=== PATIENT | female | born 1990 | race Hispanic/Latino ===

== ENCOUNTER 2019-04-06 06:13 | Day surgery (SDC) | payer BC ==
--- NOTE | 2019-04-05 18:14 | History and Physical Report ---
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 Past Surgical History Abnormal PAP: negative Infection History HIV Risk Eval: no Hx of STD: None Active Medications (reviewed today): AMBIEN TABLET (ZOLPIDEM TARTRATE TABS) JUNEL 1.5-30 MG-MCG ORAL TABLET (NORETHINDRONE ACET-ETHINYL EST) 1 tab po qd Current Allergies (reviewed today): BACTRIM (SULFAMETHOXAZOLE-TRIMETHOPRIM TABS) (Critical) Past Medical History: Reviewed history from 10/23/2018 and no changes required: Insomnia Asthma Kidney Stone (2018) Past Surgical History: Reviewed history from 08/24/2015 and no changes required: Negative Past Surgical History Family History Summary: Reviewed history Last on 10/23/2018 and no changes required:04/05/2019 Other family member - Has No Family History of Breast Cancer - Entered On: 08/24/2015 Other family member - Has No Family History of Colon Cancer - Entered On: 08/24/2015 Other family member - Has No Family History of Ovarvian Cancer - Entered On: 08/24/2015 Other family member - Has No Family History of DVT/PE on OCP - Entered On: 08/24/2015 Other family member - Has No Family History of Biliary Tract Cancer - Entered On: 10/15/2016 Other family member - Has No Family History of Brain Cancer - Entered On: 10/15/2016 Other family member - Has No Family History of Kidney/Urinary Tract Cancer - Entered On: 10/15/2016 Other family member - Has No Family History of Pancreatic Cancer - Entered On: 10/15/2016 Other family member - Has No Family History of Stomach Cancer - Entered On: 10/15/2016 Other family member - Has No Family History of Small Bowel Cancer - Entered On: 10/15/2016 Other family member - Has No Family History of Uterine Cancer - Entered On: 10/15/2016 Social History: Reviewed history from 10/23/2018 and no changes required: Patient is Smoking History: Patient has never smoked. Risk Factors: Smoked Tobacco Use: Never smoker Smokeless Tobacco Use: Never Passive smoke exposure: no Drug use: no HIV high-risk behavior: no Alcohol use: yes Exercise: yes Seatbelt use: 100 % PAP Smear History: Date of Last PAP Smear: 10/26/2018 Review of Systems General Denies fever, chills, sweats, anorexia, fatigue, weakness, malaise, weight loss and sleep disorder. Complains of abnormal vaginal bleeding. Denies vaginal discharge, incontinence, dysuria, hematuria, urinary frequency, amenorrhea, menorrhagia, pelvic pain, genital sores, decreased libido, painful periods, painful sex, urinary urgency, hot flashes, vaginal dryness, vaginal itching and vaginal odor. CV Denies chest pains, palpitations, syncope, dyspnea on exertion, orthopnea, PND and peripheral edema. Resp Denies cough, dyspnea at rest, excessive sputum, hemoptysis, wheezing and pleurisy. GI Denies nausea, vomiting, diarrhea, constipation, change in bowel habits, abdominal pain, melena, hematochezia, jaundice, gas/bloating, indigestion/heartburn, dysphagia and odynophagia. Endo Denies cold intolerance, heat intolerance, polydipsia, polyphagia, polyuria and unusual weight change. Breast Denies left breast lump, right breast lump, nipple discharge, bloody discharge from nipple, breast pain, abnormal mammogram and breast enlargement. MS Denies back pain, joint pain, joint swelling, muscle cramps, muscle weakness, stiffness, arthritis, sciatica, restless legs, leg pain at night and leg pain with exertion. Derm Denies rash, itching, dryness and suspicious lesions. Neuro Denies paralysis, paresthesias, headache, seizures, tremors, vertigo, transient blindness, frequent falls, frequent headaches and difficulty walking. Psych Denies depression, anxiety, irritability and mood swings. Eyes Denies blurring, diplopia, irritation, discharge, vision loss, eye pain and photophobia. ENT Denies earache, ear discharge, tinnitus, decreased hearing, nasal congestion, nosebleeds, sore throat and hoarseness. Allergy Denies urticaria, allergic rash, hay fever and recurrent infections. Heme Denies abnormal bruising, bleeding and enlarged lymph nodes. Physical Exam Appearance: well developed, well nourished, no acute distress Other Exams Lungs: no rales, rhonchi, or wheezes Heart: S1, S2, no murmur, rub, or gallop Impression & Recommendations: Problem # 1: Excessive and frequent menstruation with irregular cycle (ICD- 626.6) ([id number]) She's aware this procedure is to evaluate her iregular bleeding and is not for pelvic pain. She was informed AUB may recur or persist or change. Patient voiced understanding and agrees with plan of care Her updated medication list for this problem includes: Junel 1.5-30 Mg-mcg Oral Tablet (Norethindrone acet-ethinyl est) ..... 1 tab po qd Consent reviewed and signed . Possible laparoscopy or laparotomy explained to patient. The risks and alternatives for this surgery were reviewed with the patient. She was informed of possible bleeding, infection, injury to bowel, bladder, ureters or other adjacent organs. The patient was instructed/informed the following: The normal length of hospital stay for this procedure. Nothing to eat or drink after midnight the evening prior to surgery. Clear liquids the day before surgery. Pre-op instruction sheets given. The usual discomforts associated with this procedure were detailed. Proper use of pain medicines was reviewed. Patient was given ample opportunity to have all her questions answered before signing informed consent. Medications and Allergies Active Meds: Active Medications Cefazolin Sodium (Ancef/Sterile Water 2 Gm/20 Ml) 2 gm in 20 mls @ 80 mls/hr IV PREOP NR; Protocol Assessment and Plan - Patient Problems (1) Excessive and frequent menstruation with irregular cycle Status: Acute
[~2019-04-06 06:13] MED LIST: ANCEF/STERILE WATER 2 GM/20 ML 2 GM/20 ML SYRINGE IV NR; NACL 0.9% IR ONE
[2019-04-06] MEDS ORDERED: LACTATED RINGERS 1,000 ML IV SCH (07:00)
--- NOTE | 2019-04-06 07:04 | Anesthesia Consultation ---
Anesthesia Consult and Med Hx Date of service: 04/06/19 - Airway Anesthetic Teeth Evaluation: Good ROM Head & Neck: Adequate Mental/Hyoid Distance: Adequate Mallampati Class: Class I Intubation Access Assessment: Good - Pre-Operative Health Status ASA Pre-Surgery Classification: ASA2 Proposed Anesthetic Plan: General - Pulmonary Hx Asthma: Yes
--- NOTE | 2019-04-06 07:04 | Anesthesia Day of Surgery ---
Anesthesia Day of Surgery - Day of Surgery Patient Examined: Yes Patient H&P Reviewed: Yes Patient is NPO: Yes
[2019-04-06] MEDS ORDERED: ZOFRAN ONE (07:06)
[2019-04-06] MEDS ORDERED: DIPRIVAN 10 MG/ML IV ONE (07:06)
[2019-04-06] MEDS ORDERED: ZEMURON IV ONE (07:06)
[2019-04-06] MEDS ORDERED: XYLOCAINE MPF 2% ONE (07:06)
[2019-04-06] MEDS ORDERED: SUBLIMAZE ONE (07:06)
[2019-04-06] MEDS ORDERED: TORADOL ONE (07:06)
[2019-04-06] MEDS ORDERED: ZOFRAN IV PRN (07:06)
[2019-04-06] MEDS ORDERED: DECADRON ONE (07:06)
[2019-04-06] MEDS ORDERED: SUBLIMAZE IV PRN (07:06)
[2019-04-06 07:20] LABS: Hematocrit 44.4 % (30.3-42.9); Hemoglobin 15.3 gm/dl (10.1-14.3)
--- NOTE | 2019-04-06 08:13 | Post Operative Note ---
Pre-op diagnosis: AUB Post-op diagnosis: same Findings: grossly normal endometrial cavity Procedure: Cervical dilation Diagnostic hysterioscopy Uterine curettage Anesthesia: other (LMA) Surgeon: RAMESH NEWMAN Estimated blood loss: minimal Pathology: list (endometrial tissue) Specimen disposition: to lab Condition: stable Disposition: PACU
--- NOTE | 2019-04-06 08:20 | Discharge Summary ---
Providers - Providers Date of discharge: 04/06/19 Attending physician: RAMESH NEWMAN Primary care physician: PRODUCTION CONTROL SCHEDULER Hospitalization Condition: Good Procedures: Hysteroscopy with D&C Hospital course: normal Disposition: DC-01 TO HOME OR SELFCARE - Discharge Diagnoses (1) Excessive and frequent menstruation with irregular cycle Status: Acute Core Measure Documentation - Palliative Care Palliative Care/ Comfort Measures: Not Applicable - Core Measures Any of the following diagnoses?: none Exam - Constitutional Vitals: Temp Pulse Resp BP Pulse Ox 98.3 F 65 16 /70 99 04/06/19 06:50 04/06/19 06:50 04/06/19 06:50 04/06/19 06:50 04/06/19 06:50 General appearance: Present: no acute distress - Neck Neck: Present: supple - Respiratory Respiratory effort: normal - Cardiovascular Rhythm: regular - Extremities Extremities: no ischemia - Psychiatric Psychiatric: appropriate mood/affect, intact judgment & insight, memory intact, cooperative - Neurologic Neurologic: CNII-XII intact Plan Activity: other (no sex x1week, no driving ) Weight Bearing Status: Full Weight Bearing Diet: regular Follow up with: PRIMARY CARE, [Primary Care Provider] - 7 Days RAMESH NEWMAN MD [Staff Physician] - (As scheduled)
--- NOTE | 2019-04-06 08:26 | Operative Report ---
Operative Report Operative Report: Date: 04/06/2019 Preoperative diagnosis: 1. Abnormal uterine bleeding 2. Possible endometrial polyps Postoperative diagnosis: 1. Abnormal uterine bleeding 2. Possible endometrial polyps . Procedure: 1. Cervical dilation 2. Diagnostic hysteroscopy 3. Uterine curettage Surgeon: Jacquelyn Linares MD Fur Cutter: [] Anesthesiologist: Dr. Anderson Anesthesia: LMA EBL: Minimal Findings: Uterine cavity length: 7 cm. Grossly normal Distention medium: Normal saline Fluid deficit: 200 mL Procedure: After risks, benefits, complications, consequences and alternatives for this procedure were explained, and patient voiced her understanding and her desire to proceed, she is taken to the OR and placed in the supine position. LMA was induced. She was placed in the dorsolithotomy position. Exam under anesthesia was unremarkable. She was then prepped and draped in usual sterile fashion. Timeout was performed. The bladder was drained of approximately 50 mL of clear yellow urine.. A operative speculum was introduced was introduced into the vagina. The anterior lip of the cervix was grasped with single-tooth tenaculum and the uterus was sounded to 7 cm. The cervix was progressively dilated to allow the operative hysteroscope. The above findings were noted. Uterine curettage was then performed. The procedure was ended. The speculum and the tenaculum were removed. Hemostasis was noted. No bleeding from the tenaculum site was noted. Patient tolerated procedure well and taken to recovery room in stable condition
[2019-04-06 09:04] VITALS: BP 122/84
--- NOTE | 2019-04-06 17:25 | Post Anesthesia Evaluation ---
- Post Anesthesia Evaluation Patient Participated: Yes Airway Patent: Yes Stable Respiratory Function: Yes Nausea/Vomiting: No Temp > 96.8F: Yes Pain Manageable: Yes Adequeate Hydration: Yes Anesthesia Complications: No Block Receding Appropriately: Not Applicable Patient on Ventilator: No
== END 2019-04-06 09:25 | disposition home or self-care (01) ==
LOC: OR 06:13
PROVIDERS: ATTEND Obstetrics & Gynecology
DX: N85.8 Other specified noninflammatory disorders of uterus (principal); N93.9 Abnormal uterine and vaginal bleeding, unspecified; J45.909 Unspecified asthma, uncomplicated; Z88.2 Allergy status to sulfonamides; Z79.899 Other long term (current) drug therapy; Z87.442 Personal history of urinary calculi
CPT/HCPCS: 36415; 58558; 81025; 85014; 85018; 86850; 86900; 86901; 88305; A4217; J0690; J1100; J2405; J2704; J3010; J7120; J1885

== ENCOUNTER 2020-04-20 23:47 | Emergency (ER) | payer BC ==
[2020-04-21 00:02] VITALS: BP 128/86
== END 2020-04-21 01:00 | disposition left against medical advice (07) ==
LOC: ED 23:47
DX: R10.2 Pelvic and perineal pain (principal); Z53.21 Procedure and treatment not carried out due to patient leaving prior to being seen by health care provider